=== PATIENT | male | born 1965 | race Two or more races ===

== ENCOUNTER 2023-04-26 18:27 | Emergency (ER) | payer OTHER ==
[~2023-04-26] VITALS: Ht 177.8 cm; Wt 87.1 kg
[2023-04-27] MEDS ORDERED: AMOXICILLIN500 M1 (15:03)
[2023-04-27] MEDS ORDERED: AMOX-CLAV 875-1 EAC1 PO (15:06)
== END 2023-04-26 19:45 | disposition home or self-care (01) ==
LOC: ER 18:28
DX: L03.011 Cellulitis of right finger (principal)

== ENCOUNTER 2023-04-27 11:28 | Emergency (ER) | payer OTHER ==
[~2023-04-27] VITALS: Ht 177.8 cm; Wt 87.1 kg
[2023-04-27] MEDS ORDERED: AMOXICILLIN500 M1 (15:03)
[2023-04-27] MEDS ORDERED: AMOX-CLAV 875-1 EAC1 PO (15:06)
== END 2023-04-27 15:31 | disposition home or self-care (01) ==
LOC: ER 11:28
DX: L03.011 Cellulitis of right finger (principal)